=== PATIENT | male | born 1940 | race Hispanic/Latino ===

== ENCOUNTER 2021-12-05 10:15 | Day surgery (SDC) | payer MEDICARE ==
[2021-12-05] VITALS (21 sets, daily range): BP systolic 112–130; BP diastolic 63–78
[~2021-12-05] VITALS: Ht 154.9 cm; Wt 68.5 kg
[2021-12-05] MEDS ORDERED: PROPOFOL 10 MG/ML 20ML VIAL IV ONE (11:14)
[2021-12-05] MEDS ORDERED: FENTANYL CITRATE PF 50 MCG/1 ML 2ML VIAL ONE (11:14)
[2021-12-05] MEDS ORDERED: SUCCINYLCHOLINE 200MG/10ML SYR ONE (11:14)
[2021-12-05] MEDS ORDERED: LIDOCAINE PF 100MG/5ML (2%) SYRINGE 5ML ONE (11:15)
[2021-12-05] MEDS ORDERED: SACU1TAB4 PO (11:25)
[2021-12-05] MEDS ORDERED: [UNRECOGNIZED DRUG - OTHER] PO (11:27)
[2021-12-05] MEDS ORDERED: ROSU5TAB PO (11:28)
[2021-12-05] MEDS ORDERED: TORS20TA4 PO (11:29)
[2021-12-05] MEDS ORDERED: TAMS-1 PO (11:30)
[2021-12-05] MEDS ORDERED: CLOP75TA32 PO (11:30)
[2021-12-05] MEDS ORDERED: AEC81 PO (11:31)
[2021-12-05] MEDS ORDERED: DUTA0.5C37 PO (11:31)
[2021-12-05] MEDS ORDERED: PANT40TA54 PO (11:32)
[2021-12-05] MEDS ORDERED: AMIO200T68 PO (11:32)
[2021-12-05] MEDS ORDERED: PHENYLEPHRINE HCL 10 MG/ML 1ML VIAL IV ONE (12:59)
[2021-12-05] MEDS ORDERED: GLUCAGON 1MG KIT 1 MG ML ONE (13:04)
== END 2021-12-05 15:40 | disposition home or self-care (01) ==
LOC: ENDO 10:15 → DAH 10:15 → ENDO 15:40
PROVIDERS: ATTEND Internal Medicine Gastroenterology
DX: R93.2 Abnormal findings on diagnostic imaging of liver and biliary tract (principal); T85.520A Displacement of bile duct prosthesis, initial encounter; K80.50 Calculus of bile duct without cholangitis or cholecystitis without obstruction; K83.8 Other specified diseases of biliary tract; K21.9 Gastro-esophageal reflux disease without esophagitis; I10 Essential (primary) hypertension; E78.5 Hyperlipidemia, unspecified; R13.10 Dysphagia, unspecified; E78.9 Disorder of lipoprotein metabolism, unspecified; R10.10 Upper abdominal pain, unspecified; Z98.41 Cataract extraction status, right eye; Z98.42 Cataract extraction status, left eye; Z87.891 Personal history of nicotine dependence; Z72.89 Other problems related to lifestyle; Z95.810 Presence of automatic (implantable) cardiac defibrillator; Z90.49 Acquired absence of other specified parts of digestive tract; Z98.49 Cataract extraction status, unspecified eye; Z98.890 Other specified postprocedural states; Y73.8 Miscellaneous gastroenterology and urology devices associated with adverse incidents, not elsewhere classified; Y92.89 Other specified places as the place of occurrence of the external cause
CPT/HCPCS: 87426; 43264; 43275; 74328; 93005; J3010; J0330; J1610; J2001; J2704; J2370; A4215 ×2; A4223; A4657; A4222; A4221; A4663; J7030; A4606; C1769; C1773; 43273; 74330